=== PATIENT | male | born 1955 | race American Indian/Alaskan Native ===

== ENCOUNTER 2017-05-21 09:07 | Day surgery (SDC) | payer OTHER, MEDICARE ==
[2017-05-21] MEDS ORDERED: NACL 0.9% 1000 ML 1,000 ML IV SCH (11:00)
--- NOTE | 2017-05-21 11:29 | Anesthesia Consultation ---
Anesthesia Consult and Med Hx Date of service: 05/21/17 - Airway Anesthetic Teeth Evaluation: Good ROM Head & Neck: Adequate Mental/Hyoid Distance: Adequate Mallampati Class: Class I - Pulmonary Exam CTA: Yes - Cardiac Exam Cardiac Exam: No Murmur - Pre-Operative Health Status ASA Pre-Surgery Classification: ASA2 Proposed Anesthetic Plan: General - Pulmonary Hx Smoking: No (patient denies) Hx Asthma: No COPD: No Hx Pneumonia: No - Cardiovascular System Hx Hypertension: Yes Hx Heart Attack/AMI: No Hx Pacemaker: No Hx Internal Defibrillator: No - Central Nervous System Hx Seizures: No Hx Back Pain: Yes (CERVICAL, LUMBAR CHRONIC PAIN, RECEIVES EPIDURAL INJECTIONS PRN) Hx Psychiatric Problems: No - Gastrointestinal Hx Gastroesophageal Reflux Disease: No - Endocrine Hx Renal Disease: No Hx Liver Disease: No - Hematic Hx Sickle Cell Disease: No - Other Systems Hx Alcohol Use: Yes Hx Substance Use: No Hx Cancer: No
--- NOTE | 2017-05-21 11:29 | Anesthesia Day of Surgery ---
Anesthesia Day of Surgery - Day of Surgery Patient Examined: Yes Patient H&P Reviewed: Yes Patient is NPO: Yes
[2017-05-21] MEDS ORDERED: WATER FOR IRRIG STERILE IR ONE (12:07)
[2017-05-21] MEDS ORDERED: WATER FOR IRRIG STERILE ONE (12:07)
[2017-05-21] MEDS ORDERED: DIPRIVAN 10 MG/ML IV ONE ×2 (12:14)
--- NOTE | 2017-05-21 13:10 | Operative Report ---
Operative Report Operative Report: Date of procedure: 05/21/2017 Procedure: Colonoscopy with Hot Biopsy Polypectomy. Attending physician: Deo Coon MD Discharge Rn: Deo Coon MD Indication: Patient is a 61-year-old male who presents for screening colonoscopy. Patient has a past history of colon polyps. This colonoscopy serves to evaluate patient so that treatment may be directed based on the findings. Consent: Informed consent was obtained after advising the patient and family regarding nature of this procedure, its indications, potential benefits as well as possible complications including but not limited to bleeding perforation and adverse reaction to medication, infection as well as other cardiopulmonary complications. An informed written and verbal consent was then obtained after due opportunity was provided for questions and answers. Monitoring: Patient was monitored continuously with pulse oximetry and electrocardiographic recordings as well as blood pressure recordings. Vital signs remained stable throughout this procedure with no untoward events. Preoperative assessment: Patient was assessed immediately prior to this procedure for capacity to tolerate monitored anesthesia care and moderate sedation as well as general anesthesia. Patient's ASA classification is 2, Mallampati class is 2, Hyomental distance is 3. Instrument: Digiumn video colonoscope Medications: Propofol given intravenously in divided doses. For details please refer to anesthesia records. Description of procedure: Patient was placed in the left lateral decubitus position after achieving sedation, a digital rectal examination was performed following which the colonoscope was introduced into the anal verge and advanced to the cecum which was identified by the cecal valve, the appendiceal orifice, as well as by the cecal strap and direct transillumination. The colonoscope was subsequently withdrawn with careful inspection of all mucosal surfaces. Patient tolerated this procedure well and was subsequently taken to the recovery room. The following findings were noted. Findings: Patient had multiple diminutive sessile polyps in the sigmoid colon which measured 4-5 mm. these were variously flat or sessile. The polyps were removed by hot biopsy polypectomy and retrieved. There were scattered diminutive diverticula in the sigmoid colon and also in the descending colon. The rest of the colon to the cecum was normal. On the retroflex view at the anal verge, patient had internal hemorrhoids. Impression: Multiple diminutive sigmoid colon polyps status post hot biopsy polypectomy. Diverticula disease of the colon. Internal hemorrhoids. Plan: Follow pathology report. High-fiber diet. Repeat colonoscopy in 5 years.
[2017-05-21 13:36] VITALS: BP 106/67
--- NOTE | 2017-05-21 17:40 | Discharge Summary ---
Short Stay Discharge Plan Activity: advance as tolerated Weight Bearing Status: Weight Bear as Tolerated Diet: regular Additional Instructions: Post Sedation D/C Instructions When you return home you may resume your regular diet unless otherwise directed. -Go directly home from the hospital and rest quietly. You may resume normal activities tomorrow. -Do NOT drive, return to work, operate any machinery or make any important personal or business decisions today. -Do NOT drink any alcohol or take nerve or sleeping drugs. They add to the effects of the medicine still present in your body. Follow up with: TOM SANTOS MD [Primary Care Provider] - 7 Days
== END 2017-05-21 09:08 | disposition home or self-care (01) ==
LOC: GIO 09:07
PROVIDERS: ATTEND Internal Medicine Gastroenterology
DX: Z12.11 Encounter for screening for malignant neoplasm of colon (principal); K63.5 Polyp of colon; K57.30 Diverticulosis of large intestine without perforation or abscess without bleeding; K64.8 Other hemorrhoids; I10 Essential (primary) hypertension
CPT/HCPCS: 45384; 88305; J2704; J7030

== ENCOUNTER 2020-05-08 07:14 | Day surgery (SDC) | payer OTHER, MEDICARE ==
[2020-05-04 10:52] LABS: Hematocrit 44.2 % (35.5-45.6); Mean Corpuscular HGB Conc 32 % (32-34); Mean Corpuscular Volume 88 fl (84-94); Red Blood Count 5.05 M/mm3 (3.65-5.03); Red Cell Distribution Width 13.5 % (13.2-15.2)
[2020-05-04 10:56] LABS: Platelet Count 231 K/mm3 (140-440)
[2020-05-04 11:17] LABS: Alanine Aminotransferase 35 units/L (7-56); Albumin 3.9 g/dL (3.9-5); BUN/Creatinine Ratio 12; Blood Urea Nitrogen 13 mg/dL (9-20); Calcium 9.5 mg/dL (8.4-10.2); Hemolysis Index 72
[~2020-05-08 07:14] MED LIST: ceFAZolin/Water 2 GM/20 ML 2 GM/20 ML SYRINGE IV NR
[2020-05-08] MEDS ORDERED: ONDANSETRON 4 MG/2 ML INJ ONE (08:00)
[2020-05-08] MEDS ORDERED: dexAMETHasone 20 MG/5 ML VIAL ONE (08:00)
[2020-05-08] MEDS ORDERED: LIDOCAINE MPF (2%) 20 MG/1 ML VIAL 5 ML ONE (08:00)
--- NOTE | 2020-05-08 08:16 | Anesthesia Day of Surgery ---
Anesthesia Day of Surgery - Day of Surgery Patient Examined: Yes Patient H&P Reviewed: Yes Patient is NPO: Yes
--- NOTE | 2020-05-08 08:17 | Anesthesia Consultation ---
Anesthesia Consult and Med Hx Date of service: 05/08/20 - Airway Anesthetic Teeth Evaluation: Partials ROM Head & Neck: Adequate Mental/Hyoid Distance: Adequate Mallampati Class: Class III Intubation Access Assessment: Probably Good - Pre-Operative Health Status ASA Pre-Surgery Classification: ASA2 Proposed Anesthetic Plan: General - Pulmonary Hx Smoking: No (patient denies) Hx Asthma: No COPD: No Hx Pneumonia: No Hx Sleep Apnea: No - Cardiovascular System Hx Hypertension: Yes Hx Heart Attack/AMI: No Hx Pacemaker: No Hx Internal Defibrillator: No Hx Valvular Heart Disease: Yes (MVP) - Central Nervous System Hx Seizures: No Hx Back Pain: Yes (CERVICAL, LUMBAR CHRONIC PAIN, RECEIVES EPIDURAL INJECTIONS PRN) Hx Psychiatric Problems: No - Gastrointestinal Hx Gastroesophageal Reflux Disease: No - Endocrine Hx Renal Disease: Yes (Stones and cyst (renal mass)) Hx End Stage Renal Disease: No Hx Cirrhosis: No Hx Liver Disease: No - Hematic Hx Anemia: No Hx Sickle Cell Disease: No - Other Systems Hx Alcohol Use: Yes Hx Substance Use: No Hx Cancer: No
[2020-05-08] MEDS ORDERED: HYDROmorphone 1 MG/1 ML INJ IV PRN ×2 (08:30)
[2020-05-08] MEDS ORDERED: ONDANSETRON 4 MG/2 ML INJ IV PRN (08:30)
[2020-05-08] MEDS ORDERED: MIDAZOLAM 2 MG/2 ML INJ IV SCH (08:30)
[2020-05-08] MEDS ORDERED: fentaNYL 100 MCG/2 ML INJ ONE (08:48)
[2020-05-08] MEDS ORDERED: propofoL 200 MG/20 ML VIAL IV ONE (08:48)
[2020-05-08] MEDS ORDERED: LACTATED RINGERS 1,000 ML IV SCH (09:00)
[2020-05-08] MEDS ORDERED: WATER FOR IRRIG STERILE 2000 ML IR ONE (09:30)
--- NOTE | 2020-05-08 09:32 | Short Stay Summary ---
Short Stay Documentation Date of service: 05/08/20 - History H&P: obtained from office - Allergies and Medications Current Medications: Allergies No Known Allergies Allergy (Verified 08/23/15 13:03) Home Medications Medication Instructions Recorded Confirmed Last Taken Type Aspirin 81 mg PO DAILY 05/03/20 05/08/20 6 Days Ago History ~05/02/20 Atorvastatin [Lipitor Tab] 80 mg PO QHS 05/03/20 05/03/20 05/07/20 History Sulfamethoxazole/Trimethoprim 800 tab PO Q12HR 05/03/20 05/03/20 05/07/20 History [Bactrim DS TAB] lisinopriL [Zestril TAB] 20 mg PO QDAY 05/03/20 05/08/20 05/07/20 History Active Medications Hydromorphone HCl (Hydromorphone 1 Mg/1 Ml Inj) 0.25 mg IV Q10MIN PRN PRN Reason: Pain, Moderate (4-6) Stop: 05/08/20 18:00 Hydromorphone HCl (Hydromorphone 1 Mg/1 Ml Inj) 0.5 mg IV Q10MIN PRN PRN Reason: Pain , Severe (7-10) Stop: 05/08/20 18:00 Cefazolin Sodium (Ancef/Sterile Water 2 Gm/20 Ml) 2 gm in 20 mls @ 80 mls/hr IV PREOP NR; Protocol Stop: 05/08/20 23:01 Lactated Ringer's (Lactated Ringers) 1,000 mls @ 100 mls/hr IV DIRECT LISBETH Last Admin: 05/08/20 08:25 Dose: 100 mls/hr Documented by: Midazolam HCl (Midazolam 2 Mg/2 Ml Inj) 2 mg IV ONCE LISBETH Stop: 05/08/20 18:00 Last Admin: 05/08/20 08:25 Dose: 2 mg Documented by: Ondansetron HCl (Ondansetron 4 Mg/2 Ml Inj) 4 mg IV ONCE PRN PRN Reason: Nausea And Vomiting Stop: 05/08/20 18:00 - Brief post op/procedure progress note Date of procedure: 05/08/20 Pre-op diagnosis: hematuria Post-op diagnosis: same Procedure: cysto, rpg Anesthesia: GETA Surgeon: MARTÍNEZ COATES Pathology: none Condition: stable - Hospital course Hospital course: bactrim on chart (pt has ultram/norco) - Disposition Condition at discharge: Stable Disposition: DC-01 TO HOME OR SELFCARE Short Stay Discharge Plan Follow up with: BRYCE DWYER MD [Primary Care Provider] - 7 Days
--- NOTE | 2020-05-08 09:48 | Fluoroscopy Report ---
INTRAOPERATIVE FLUOROSCOPY: RETROGRADE UROGRAPHY INDICATION: HEMATURIA. TECHNIQUE: Intraoperative spot images were obtained during the procedure. FINDINGS: There is expected opacification of the renal collecting systems and ureters. Please see the procedura l report for further details. Fluoroscopy Time: 5 seconds. Fluoroscopy Images: 4. Signer Name: Piotr Garcia MD Signed: 05/08/2020 9:44 AM Workstation Name: [id number]
--- NOTE | 2020-05-08 10:22 | Operative Report ---
PREOPERATIVE DIAGNOSES: 1. Gross hematuria. 2. Benign prostatic hypertrophy. 3. Left ureteral stone. POSTOPERATIVE DIAGNOSES: 1. Gross hematuria. 2. Benign prostatic hypertrophy. 3. Left ureteral stone, passed stone. PROCEDURE: Cystoscopy, bilateral retrograde pyelograms. SURGEON: Rudy Craig MD ANESTHESIA: General. ESTIMATED BLOOD LOSS: Minimal. FLUIDS: Crystalloid. COMPLICATIONS: No complications. INDICATIONS: This patient is a 64-year-old gentleman known to our service, history of renal cyst in the past, has been followed conservatively. He presented earlier this month with an episode of gross hematuria. CT of abdomen and pelvis revealed a 2 mm distal stone. The patient has had no more pain. He presents now for endoscopy. Risks, benefits, and complications were explained. DESCRIPTION OF PROCEDURE: The patient was taken to the operative suite, placed in a supine position. After adequate general anesthesia, he was placed in a dorsal lithotomy position, prepped and draped in a sterile fashion. Pancystourethroscopy was performed with a 22-[place] cystoscope, no urethral abnormalities. Prostate did display some [id number] trilobar obstruction. Bladder, no tumors or stones were noted. Mild diffuse trabeculation. Bilateral retrograde pyelograms were obtained with an 8-[place] catheter and 8 mL of contrast. No filling defects or obstruction. Bladder was drained. Rectal exam was benign. He was extubated and taken to recovery room in stable condition. We will give another prescription of Bactrim, but the patient has Ultram and [place]. JOB# [id number] [facility]
[2020-05-08 10:48] VITALS: BP 111/62
--- NOTE | 2020-05-08 11:52 | Post Anesthesia Evaluation ---
- Post Anesthesia Evaluation Patient Participated: Yes Airway Patent: Yes Stable Respiratory Function: Yes Nausea/Vomiting: No Temp > 96.8F: Yes Pain Manageable: Yes Adequeate Hydration: Yes Anesthesia Complications: No Block Receding Appropriately: Not Applicable Patient on Ventilator: No
== END 2020-05-08 07:15 | disposition home or self-care (01) ==
LOC: OR 07:14
PROVIDERS: ATTEND Urology
DX: R31.0 Gross hematuria (principal); N40.0 Benign prostatic hyperplasia without lower urinary tract symptoms; N20.1 Calculus of ureter; Z20.822 Contact with and (suspected) exposure to COVID-19; E78.00 Pure hypercholesterolemia, unspecified; I10 Essential (primary) hypertension; M19.90 Unspecified osteoarthritis, unspecified site; Z72.89 Other problems related to lifestyle; Z79.899 Other long term (current) drug therapy; Z79.82 Long term (current) use of aspirin; Z87.440 Personal history of urinary (tract) infections; Z98.890 Other specified postprocedural states
CPT/HCPCS: 36415; 52005; 74420; 80053; 85027; A4217; C1758; J0690; J1100; J1170; J2250; J2405; J2704; J3010; J7120; Q9967; U0003